=== PATIENT | female | born 1965 | race African-American/Black ===

== ENCOUNTER 2018-07-06 23:07 | Emergency (ER) | payer MEDICAID, OTHER ==
[~2018-07-06] VITALS: Ht 167.6 cm; Wt 112.0 kg
[~2018-07-06 23:07] MED LIST: BENAZEPRIL; CEPHALEXIN; HYDROCHLOROTHIAZIDE; [UNRECOGNIZED DRUG - OTHER]
[2018-07-06] MEDS ORDERED: KETOROLAC 30MG/ML VIAL IV STA (23:31)
[2018-07-07 00:44] LABS: BASOPHILS % 0.2 % (0.0-2.0); EOSINOPHILS % 0.4 % (0.0-5.0); HEMATOCRIT. 42.8 % (36.0-48.0); HEMOGLOBIN. 13.9 g/dL (12.0-16.0); LYMPHOCYTES % 12.7 % (20.0-50.0); MEAN CORPUSCULAR HEMOGLOBIN 25.3 pg (28.0-32.0); MEAN CORPUSCULAR VOLUME 78.1 fL (81.0-99.0); MEAN PLATELET VOLUME 8.6 fl (7.4-10.4); MONOCYTES % 5.1 % (2.0-8.0); NEUTROPHILS % 81.6 % (40.0-76.0); PLATELET 243 x1000/uL (130-400); RED BLOOD CELL COUNT 5.48 mill/uL (4.2-5.4); RED CELL DISTRIBUTION WIDTH 16.7 % (11.6-14.6)
[2018-07-07 00:49] LABS: CHLORIDE 105 mEq/L (98-107)
[2018-07-07] MEDS ORDERED: SODIUM CHLORIDE 0.9% 1,000 ML IV ONE (01:15)
[2018-07-07] MEDS ORDERED: ONDANSETRON HCL 4MG/2ML INJ IV ONE (01:30)
[2018-07-07 02:16] LABS: CLARITY URINE CLEAR (CLEAR); COLOR URINE YELLOW (YELLOW); KETONES URINE TRACE (NEGATIVE); LEUKOCYTE ESTERASE URINE NEGATIVE (NEGATIVE); NITRITE URINE NEGATIVE (NEGATIVE); OCCULT BLOOD URINE NEGATIVE (NEGATIVE); PH URINE 5.5 (4.5-8.0); PROTEIN URINE NEGATIVE (NEGATIVE); SPECIFIC GRAVITY URINE 1.009 (1.005-1.030); UROBILINOGEN URINE 0.2 E.U./dL (0.2-1.0)
[2018-07-07 03:23] VITALS: BP 138/69
== END 2018-07-07 03:27 | disposition home or self-care (01) ==
LOC: ER 23:07
DX: K80.20 Calculus of gallbladder without cholecystitis without obstruction (principal); R19.7 Diarrhea, unspecified; K76.0 Fatty (change of) liver, not elsewhere classified; I10 Essential (primary) hypertension; E11.9 Type 2 diabetes mellitus without complications
CPT/HCPCS: 36415; 76705; 76856; 80053; 81003; 83690; 85025; 96361; 96374; 96375; 99284; J1885; J2405; J7030

== ENCOUNTER 2019-08-26 09:30 | Emergency (ER) | payer OTHER ==
[~2019-08-26] VITALS: Ht 165.1 cm; Wt 124.0 kg
[2019-08-26] MEDS ORDERED: FAMOTIDINE 20MG/2ML VIAL IV STA (09:52)
[2019-08-26] MEDS ORDERED: VISCOUS LIDOCAINE 2% 15 ML UDC PO STA (09:52)
[2019-08-26] MEDS ORDERED: SODIUM CHLORIDE 0.9% 1,000 ML IV ONE (09:52)
[2019-08-26] MEDS ORDERED: ONDANSETRON HCL 4MG/2ML INJ IV STA (09:52)
[2019-08-26] MEDS ORDERED: MAGNESIUM/ALUMINUM HYDROXIDE/SIMETHICONE 30ML UDC PO STA (09:52)
[2019-08-26 10:25] LABS: HEMATOCRIT. 44.4 % (36.0-48.0); HEMOGLOBIN. 15.3 g/dL (12.0-16.0); MEAN CORPUSCULAR HEMOGLOBIN 30.4 pg (28.0-32.0); MEAN CORPUSCULAR VOLUME 88.2 fL (81.0-99.0); MEAN PLATELET VOLUME 8.5 fl (7.4-10.4); PLATELET 152 x1000/uL (130-400); RED BLOOD CELL COUNT 5.04 mill/uL (4.2-5.4); RED CELL DISTRIBUTION WIDTH 14.2 % (11.6-14.6)
[2019-08-26 10:30] LABS: PROTHROMBIN TIME 10.7 sec (9.6-11.0)
[2019-08-26 10:40] LABS: CHLORIDE 100 mEq/L (98-107)
[2019-08-26 10:59] LABS: PLATELET ESTIMATE NORMAL
[2019-08-26 11:05] LABS: CLARITY URINE CLEAR (CLEAR); COLOR URINE YELLOW (YELLOW); KETONES URINE TRACE (NEGATIVE); LEUKOCYTE ESTERASE URINE NEGATIVE (NEGATIVE); NITRITE URINE NEGATIVE (NEGATIVE); OCCULT BLOOD URINE NEGATIVE (NEGATIVE); PROTEIN URINE 3+ (NEGATIVE); SPECIFIC GRAVITY URINE 1.018 (1.005-1.030)
[2019-08-26 11:56] VITALS: BP 157/80
== END 2019-08-26 11:56 | disposition home or self-care (01) ==
LOC: ER 09:30
DX: R11.2 Nausea with vomiting, unspecified (principal); R19.7 Diarrhea, unspecified; R10.9 Unspecified abdominal pain; E11.65 Type 2 diabetes mellitus with hyperglycemia; I10 Essential (primary) hypertension; M19.90 Unspecified osteoarthritis, unspecified site
CPT/HCPCS: 36415; 80053; 81003; 83690; 85025; 85610; 96374; 96375; 99284; J2405; J3490; J7030

== ENCOUNTER 2021-06-04 01:48 | Emergency (ER) | payer MEDICAID, OTHER ==
[~2021-06-04] VITALS: Ht 160 cm; Wt 136.0 kg
[2021-06-04] MEDS ORDERED: ONDANSETRON HCL 4MG/2ML INJ IV STA (03:09)
[2021-06-04] MEDS ORDERED: MORPHINE SULFATE 4 MG/ML CPJ (NOT FOR IM USE) IV STA (03:09)
[2021-06-04] MEDS ORDERED: SODIUM CHLORIDE 0.9% 500 ML IV ONE (03:15)
[2021-06-04 03:55] LABS: BASOPHILS % 0.3 % (0.0-2.0); EOSINOPHILS % 0.5 % (0.0-5.0); HEMATOCRIT. 41.6 % (36.0-48.0); HEMOGLOBIN. 13.7 g/dL (12.0-16.0); LYMPHOCYTES % 15.3 % (20.0-50.0); MEAN CORPUSCULAR HEMOGLOBIN 28.9 pg (28.0-32.0); MEAN CORPUSCULAR VOLUME 88.1 fL (81.0-99.0); MEAN PLATELET VOLUME 8.6 fl (7.4-10.4); MONOCYTES % 6.7 % (2.0-8.0); NEUTROPHILS % 77.2 % (40.0-76.0); PLATELET 205 x1000/uL (130-400); RED BLOOD CELL COUNT 4.73 mill/uL (4.2-5.4); RED CELL DISTRIBUTION WIDTH 14.1 % (11.6-14.6)
[2021-06-04 03:58] LABS: CHLORIDE 108 mEq/L (98-107)
[2021-06-04 06:48] LABS: CLARITY URINE CLEAR (CLEAR); COLOR URINE YELLOW (YELLOW); KETONES URINE NEGATIVE (NEGATIVE); LEUKOCYTE ESTERASE URINE NEGATIVE (NEGATIVE); NITRITE URINE NEGATIVE (NEGATIVE); OCCULT BLOOD URINE NEGATIVE (NEGATIVE); PROTEIN URINE 2+ (NEGATIVE); SPECIFIC GRAVITY URINE 1.022 (1.005-1.030); UROBILINOGEN URINE 0.2 E.U./dL (0.2-1.0)
[2021-06-04] MEDS ORDERED: MORPHINE SULFATE 4 MG/ML CPJ (NOT FOR IM USE) IV ONE (08:30)
[2021-06-04] MEDS ORDERED: CEFTRIAXONE 1 G PREMIX 50 ML IV ONE (08:30)
[2021-06-04 13:56] VITALS: BP 135/67
== END 2021-06-04 14:05 | disposition short-term general hospital (02) ==
LOC: ER 01:48 → CANBEDREQ 14:55
DX: N20.0 Calculus of kidney (principal); N39.0 Urinary tract infection, site not specified; K44.9 Diaphragmatic hernia without obstruction or gangrene; R11.2 Nausea with vomiting, unspecified; I10 Essential (primary) hypertension; E66.01 Morbid (severe) obesity due to excess calories; E11.9 Type 2 diabetes mellitus without complications; M19.90 Unspecified osteoarthritis, unspecified site; Z20.822 Contact with and (suspected) exposure to COVID-19; Z68.43 Body mass index [BMI] 50.0-59.9, adult
CPT/HCPCS: 36415; 71045; 74176; 80053; 81003; 83690; 83880; 84484; 85025; 87426; 96361; 96365; 96366; 96375; 96376; 99285; J0696; J2270; J2405; J7030

== ENCOUNTER 2021-12-15 22:08 | Inpatient (IN) | payer OTHER ==
[~2021-12-15] VITALS: Ht 160 cm; Wt 131.5 kg
[2021-12-15] MEDS ORDERED: ONDANSETRON HCL 4MG/2ML INJ IV ONE (23:15)
[2021-12-15] MEDS ORDERED: ACETAMINOPHEN 325MG TABLET PO ONE (23:15)
[2021-12-15] MEDS ORDERED: PANTOPRAZOLE SODIUM 40 MG/VIAL IV ONE (23:15)
[2021-12-15 23:27] LABS: CHLORIDE 106 mEq/L (98-107)
[2021-12-15 23:30] LABS: PROTHROMBIN TIME 11.1 sec (9.6-11.0)
[2021-12-15 23:31] LABS: HEMATOCRIT. 35.1 % (36.0-48.0); HEMOGLOBIN. 11.5 g/dL (12.0-16.0); MEAN CORPUSCULAR HEMOGLOBIN 29.2 pg (28.0-32.0); MEAN CORPUSCULAR VOLUME 88.8 fL (81.0-99.0); MEAN PLATELET VOLUME 8.7 fl (7.4-10.4); PLATELET 159 x1000/uL (130-400); RED BLOOD CELL COUNT 3.95 mill/uL (4.2-5.4); RED CELL DISTRIBUTION WIDTH 14.2 % (11.6-14.6)
[2021-12-15 23:38] LABS: ETHANOL BLOOD < 10 mg/dL
[2021-12-16] MEDS ORDERED: KETOROLAC 30MG/ML VIAL IV ONE (01:00)
[2021-12-16] MEDS ORDERED: PROCHLORPERAZINE 10MG/2ML VIAL IV ONE (01:00)
[2021-12-16 04:46] LABS: NUCLEATED RED BLOOD CELLS 1 /100 WBC; PLATELET ESTIMATE NORMAL
[2021-12-16] MEDS ORDERED: IPRATROPIUM/ALBUTEROL 0.5-3(2.5)MG/3ML NEB HHN PRN (09:30)
[2021-12-16] MEDS ORDERED: DIPHENHYDRAMINE 50MG/ML VIAL IV PRN (09:30)
[2021-12-16] MEDS ORDERED: ONDANSETRON HCL 4MG/2ML INJ IV PRN (09:30)
[2021-12-16] MEDS ORDERED: ACETAMINOPHEN 325MG TABLET PO PRN (09:30)
[2021-12-16] MEDS ORDERED: CLONIDINE 0.1MG TABLET PO PRN (09:30)
[2021-12-16] MEDS ORDERED: ACETAMINOPHEN 325MG TABLET PO ONE (12:15)
[2021-12-16 13:00] VITALS: BP 134/75
[2021-12-16 13:30] VITALS: BP 134/75
[2021-12-16] MEDS: BENAZEPRIL 10MG TABLET PO SCH (15:07)
[2021-12-16] MEDS: AMLODIPINE 10MG TABLET PO SCH (15:08)
[2021-12-16 16:00] VITALS: BP 111/24
[2021-12-16] MEDS ORDERED: IBUPROFEN 600MG TABLET PO PRN (16:00)
[2021-12-16 20:00] VITALS: BP 120/43
[2021-12-16] MEDS ORDERED: INSULIN GLARGINE 100 UNITS/ML SUBCUT SCH (22:00)
[2021-12-17] VITALS: BP 124/46
[2021-12-17 04:00] VITALS: BP 110/60
[2021-12-17 07:29] LABS: HEMATOCRIT. 36.5 % (36.0-48.0); MEAN CORPUSCULAR HEMOGLOBIN 29.5 pg (28.0-32.0); MEAN CORPUSCULAR VOLUME 89.3 fL (81.0-99.0); PLATELET 144 x1000/uL (130-400); RED BLOOD CELL COUNT 4.08 mill/uL (4.2-5.4); RED CELL DISTRIBUTION WIDTH 14.5 % (11.6-14.6)
[2021-12-17 08:00] VITALS: BP 115/44
[2021-12-17 08:31] LABS: CHLORIDE 107 mEq/L (98-107)
[2021-12-17] MEDS: AMLODIPINE 10MG TABLET PO SCH (09:26)
[2021-12-17] MEDS ORDERED: INSULIN GLARGINE 100 UNITS/ML SUBCUT SCH (10:00)
[2021-12-17] MEDS: BENAZEPRIL 10MG TABLET PO SCH (11:19)
[2021-12-17 12:00] VITALS: BP 140/69
[2021-12-17] MEDS ORDERED: AMLO10TA80 PO (14:39)
[2021-12-17 16:00] VITALS: BP 146/71
[2021-12-17 17:16] VITALS: BP 146/71
[2021-12-17 22:01] LABS: PLATELET ESTIMATE NORMAL
== END 2021-12-17 18:55 | disposition home or self-care (01) | DRG 199 ==
LOC: ER 22:08 → 7WST 12-16 03:49 → ENRESERV 12-16 11:03
PROVIDERS: ADMIT Internal Medicine; ATTEND Internal Medicine
DX: I16.0 Hypertensive urgency (principal); E11.9 Type 2 diabetes mellitus without complications; M19.90 Unspecified osteoarthritis, unspecified site; I10 Essential (primary) hypertension; Z87.442 Personal history of urinary calculi
CPT/HCPCS: 36415; 71045; 80053; 80320; 83036; 83880; 84484; 85025; 86850; 86900; 93005; 93970; 99285; C9113; J0780; J1815; J1885; J2405; G0480

== ENCOUNTER 2022-06-17 01:57 | Emergency (ER) | payer OTHER ==
[~2022-06-17] VITALS: Ht 167.6 cm; Wt 115.0 kg
[~2022-06-17 01:57] MED LIST changes: +AMLO10TA80 PO
[2022-06-17 02:16] VITALS: BP 164/90
[2022-06-17 08:04] LABS: BASOPHILS % 0.3 % (0.0-2.0); EOSINOPHILS % 0.2 % (0.0-5.0); HEMATOCRIT. 43.2 % (36.0-48.0); HEMOGLOBIN. 14.5 g/dL (12.0-16.0); LYMPHOCYTES % 15.4 % (20.0-50.0); MEAN CORPUSCULAR HEMOGLOBIN 30.3 pg (28.0-32.0); MEAN CORPUSCULAR VOLUME 90.2 fL (81.0-99.0); MEAN PLATELET VOLUME 8.4 fl (7.4-10.4); MONOCYTES % 8.2 % (2.0-8.0); NEUTROPHILS % 75.9 % (40.0-76.0); PLATELET 179 x1000/uL (130-400); RED BLOOD CELL COUNT 4.79 mill/uL (4.2-5.4); RED CELL DISTRIBUTION WIDTH 13.5 % (11.6-14.6)
[2022-06-17 08:14] LABS: PROTHROMBIN TIME 11.2 sec (9.6-11.0)
[2022-06-17 08:24] LABS: CHLORIDE 105 mEq/L (98-107)
[2022-06-17 08:31] LABS: ETHANOL BLOOD < 10 mg/dL
[2022-06-17 09:44] LABS: CLARITY URINE CLOUDY (CLEAR); COLOR URINE YELLOW (YELLOW); KETONES URINE TRACE (NEGATIVE); LEUKOCYTE ESTERASE URINE TRACE (NEGATIVE); NITRITE URINE NEGATIVE (NEGATIVE); OCCULT BLOOD URINE NEGATIVE (NEGATIVE); PROTEIN URINE TRACE (NEGATIVE); SPECIFIC GRAVITY URINE 1.022 (1.005-1.030)
[2022-06-17] MEDS ORDERED: MELO-105 MT (10:08)
== END 2022-06-17 10:35 | disposition home or self-care (01) ==
LOC: ER 02:06
DX: R10.11 Right upper quadrant pain (principal); N20.0 Calculus of kidney; I10 Essential (primary) hypertension; E11.9 Type 2 diabetes mellitus without complications
CPT/HCPCS: 36415; 74176; 80053; 80320; 81003; 85025; 93005; 99285; G0480

== ENCOUNTER 2023-07-10 22:32 | Emergency (ER) | payer MEDICAID, OTHER ==
[~2023-07-10] VITALS: Ht 165.1 cm; Wt 118.0 kg
[~2023-07-10 22:32] MED LIST changes: +MELO-105 MT
[2023-07-10 22:35] VITALS: O2SAT 99
[2023-07-10] MEDS ORDERED: SODIUM CHLORIDE 0.9% 1,000 ML IV ONE (23:00)
[2023-07-10] MEDS ORDERED: ONDANSETRON HCL 4MG/2ML INJ IV ONE (23:15)
[2023-07-10] MEDS ORDERED: KETOROLAC 15MG/ML VIAL IV ONE (23:15)
[2023-07-10 23:47] LABS: HEMOGLOBIN. 14.3 g/dL (12.0-16.0); MEAN CORPUSCULAR HGB CONC 33.3 g/dL (31.0-37.0); MEAN CORPUSCULAR VOLUME 90.1 fL (81.0-99.0); MEAN PLATELET VOLUME 8.5 fl (7.4-10.4); PLATELET 195 x1000/uL (130-400); RED BLOOD CELL COUNT 4.77 mill/uL (4.2-5.4); RED CELL DISTRIBUTION WIDTH 13.9 % (11.6-14.6); WHITE BLOOD COUNT 15.9 x1000/uL (4.5-11.0)
[2023-07-10 23:55] LABS: DIFFERENTIAL COMMENT 1
[2023-07-10 23:58] LABS: PROTHROMBIN TIME 10.8 sec (9.6-11.0)
[2023-07-11 00:02] LABS: ALANINE AMINOTRANSFERASE 16 IU/L (10-49); ALBUMIN 4.1 g/dL (3.2-4.8); ASPARTATE AMINOTRANSFERASE 23 IU/L (<34); BILIRUBIN TOTAL 0.6 mg/dL (0.1-1.0); CALCIUM 9.5 mg/dL (8.7-10.4); CARBON DIOXIDE 27 mEq/L (21-32); CHLORIDE 103 mEq/L (98-107); GLUCOSE 94 mg/dL (70-105); POTASSIUM 3.8 mEq/L (3.5-5.1); SODIUM 139 mEq/L (136-145); TROPONIN I HIGH SENSITIVITY 33 ng/L (3.0-34); UREA NITROGEN BLOOD 23 mg/dL (9-23)
[2023-07-11] MEDS ORDERED: VANCOMYCIN 1G PREMIX 200 ML IV NR (00:45)
[2023-07-11] MEDS ORDERED: PIPERACILLIN/TAZO 3.375G/50ML 50 ML IV NR (01:30)
[2023-07-11 03:51] LABS: PLATELET ESTIMATE NORMAL
[2023-07-11 04:17] LABS: TROPONIN I HIGH SENSITIVITY 75 ng/L (3.0-34)
[2023-07-11] MEDS ORDERED: ASPIRIN 325MG EC TABLET PO NR (05:15)
[2023-07-11] MEDS ORDERED: MORPHINE SULFATE 4 MG/ML CPJ (NOT FOR IM USE) IV ONE (05:15)
[2023-07-11] MEDS ORDERED: MORPHINE SULFATE 4 MG/ML CPJ (NOT FOR IM USE) IV NR (05:15)
[2023-07-11] MEDS ORDERED: ASPIRIN 325MG EC TABLET PO ONE (05:15)
[2023-07-11 05:32] LABS: CLARITY URINE CLEAR (CLEAR); COLOR URINE YELLOW (YELLOW); GLUCOSE URINE NEGATIVE (NEGATIVE); KETONES URINE NEGATIVE (NEGATIVE); LEUKOCYTE ESTERASE URINE NEGATIVE (NEGATIVE); NITRITE URINE NEGATIVE (NEGATIVE); OCCULT BLOOD URINE NEGATIVE (NEGATIVE); PH URINE 6.5 (4.5-8.0); PROTEIN URINE 1+ (NEGATIVE); SPECIFIC GRAVITY URINE 1.019 (1.005-1.030)
[2023-07-11 06:24] VITALS: BP 134/52; PULSE 95; RESP 18; TEMP 98.5
[2023-07-11 07:40] LABS: BACTERIA URINE NONE SEEN; RBC URINE 0-2 /hpf (0-2); SQUAMOUS EPITHELIAL CELL URINE FEW /lpf (RARE/1+); WBC URINE 0-2 /hpf (0-2)
== END 2023-07-11 07:09 | disposition home or self-care (01) ==
LOC: ER 22:32
DX: A41.9 Sepsis, unspecified organism (principal); R51.9 Headache, unspecified; R11.2 Nausea with vomiting, unspecified; E11.9 Type 2 diabetes mellitus without complications; I10 Essential (primary) hypertension; Z20.822 Contact with and (suspected) exposure to COVID-19
CPT/HCPCS: 80053; 83605; 83690; 85025; 85610; 87040; 84484 ×2; 36415 ×2; 84145; 71045; 93005; 99285; 81003; 87086; 74176; 96367; 96361; 96365; 96366; 96375; 87426; J1885; J2405; J7030; Z7610 ×3; J2543; J3370; J2270